=== PATIENT | male | born 1995 | race Caucasian/White ===

== ENCOUNTER 2018-11-11 12:41 | Emergency (ER) | payer BC ==
[~2018-11-11] VITALS: Ht 172.7 cm; Wt 140.6 kg
[2018-11-11 12:49] VITALS: Ht 172.7 cm; Wt 140.6 kg
[2018-11-11 13:43] LABS: BASOPHIL % 0.3 % (0-2); PLATELET COUNT 235 x10^3mcL (130-400); RED CELL DISTRIBUTION WIDTH 13.1 % (11.5-14.5)
[2018-11-11 13:44] LABS: CALCIUM 9.4 mg/dL (8.5-10.1); CARBON DIOXIDE 29.5 mmol/L (21-32); CHLORIDE SERUM 106 mmol/L (98-107); GFR1 > 60 mL/min; GLUCOSE SERUM 155 mg/dL (74-106); SODIUM SERUM 144 mmol/L (136-145)
[2018-11-11 13:49] LABS: ALBUMIN 4.1 g/dL (3.4-5.0); ALKALINE PHOSPHATASE 66 U/L (46-116); ALT/SGPT 216 U/L (16-63); AST/SGOT 69 U/L (15-37); BILIRUBIN TOTAL 0.67 mg/dL (0.20-1.00); TOTAL PROTEIN, SERUM 7.8 g/dL (6.4-8.2)
[2018-11-11 15:34] VITALS: BP 126/70
== END 2018-11-11 15:34 | disposition home or self-care (01) ==
LOC: ED 12:41
PROVIDERS: Emergency Medicine
DX: J32.2 Chronic ethmoidal sinusitis (principal)
CPT/HCPCS: J1885; J2405; J7030

== ENCOUNTER 2019-09-30 09:53 | Emergency (ER) | payer MEDICAID ==
[~2019-09-30] VITALS: Ht 172.7 cm; Wt 140.6 kg
[2019-09-30 10:05] VITALS: Ht 172.7 cm; Wt 140.6 kg
[2019-09-30 10:46] LABS: BASOPHIL % 0.4 % (0-2); PLATELET COUNT 227 x10^3mcL (130-400); RED CELL DISTRIBUTION WIDTH 13.8 % (11.5-14.5)
[2019-09-30 10:58] LABS: UA SPECIFIC GRAVITY 1.015 (1.005-1.035); microscopic required? YES; urine erythrocyte NEGATIVE (NEGATIVE)
[2019-09-30 11:01] LABS: CALCIUM 9.7 mg/dL (8.5-10.1); CARBON DIOXIDE 27.6 mmol/L (21-32); CHLORIDE SERUM 104 mmol/L (98-107); CREATININE SERUM 0.9 mg/dL (0.7-1.3); GFR1 > 60 mL/min; GLUCOSE SERUM 115 mg/dL (74-106); POTASSIUM SERUM 3.6 mmol/L (3.5-5.1); SODIUM SERUM 142 mmol/L (136-145)
[2019-09-30 11:02] LABS: ALBUMIN 4.4 g/dL (3.4-5.0); ALKALINE PHOSPHATASE 50 U/L (46-116); ALT/SGPT 323 U/L (16-63); AST/SGOT 114 U/L (15-37); BILIRUBIN TOTAL 1.3 mg/dL (0.20-1.00); CHOLESTEROL 197 mg/dL (<200); CHOLESTEROL/HDL RATIO 4.2; HDL CHOLESTEROL 47 mg/dL (40-60); LIPASE 66 IU/L (73-393); TOTAL PROTEIN, SERUM 7.9 g/dL (6.4-8.2); TRIGLYCERIDES 101 mg/dL (<150)
[2019-09-30 11:07] LABS: T3 TOTAL 1.57 ng/mL
[2019-09-30 11:16] LABS: FREE T4 0.96 ng/dL (0.76-1.46); FREE THYROXINE INDEX 2.3 ug/dL (1.4-4.5); T4(THYROXINE) 7.7 ug/dL (4.7-13.3)
[2019-09-30 13:52] VITALS: BP 144/91
== END 2019-09-30 13:52 | disposition home or self-care (01) ==
LOC: ED 09:53
PROVIDERS: Specialist
DX: R07.89 Other chest pain (principal); R51 Headache; E66.01 Morbid (severe) obesity due to excess calories; J45.909 Unspecified asthma, uncomplicated
CPT/HCPCS: 83880; 84439; J7030; Q0092

== ENCOUNTER 2019-10-02 15:53 | Inpatient (IN) | payer MEDICAID ==
[~2019-10-02] VITALS: Ht 172.7 cm; Wt 136.5 kg
[2019-10-02 15:57] VITALS: Ht 172.7 cm; Wt 136.5 kg
[2019-10-02 17:19] LABS: BASOPHIL % 0.4 % (0-2); PLATELET COUNT 231 x10^3mcL (130-400); RED CELL DISTRIBUTION WIDTH 13.6 % (11.5-14.5)
[2019-10-02 17:31] LABS: CALCIUM 9.4 mg/dL (8.5-10.1); CARBON DIOXIDE 26.4 mmol/L (21-32); CHLORIDE SERUM 103 mmol/L (98-107); CREATININE SERUM 0.9 mg/dL (0.7-1.3); GFR1 > 60 mL/min; GLUCOSE SERUM 111 mg/dL (74-106); SODIUM SERUM 141 mmol/L (136-145)
[2019-10-02 17:35] LABS: ALBUMIN 4.5 g/dL (3.4-5.0); ALKALINE PHOSPHATASE 49 U/L (46-116); ALT/SGPT 301 U/L (16-63); AST/SGOT 99 U/L (15-37); CHOLESTEROL 200 mg/dL (<200); HDL CHOLESTEROL 41 mg/dL (40-60); LIPASE 76 IU/L (73-393); TOTAL PROTEIN, SERUM 8.1 g/dL (6.4-8.2)
[2019-10-02] MEDS ORDERED: PROAIR HFA8.5 GM INH (20:27)
[2019-10-02 20:51] VITALS: BP 150/88
[2019-10-02 21:52] LABS: UA SPECIFIC GRAVITY >=1.030 (1.005-1.035); microscopic required? YES; urine erythrocyte NEGATIVE (NEGATIVE)
[2019-10-02 22:16] LABS: AMPHETAMINE QUAL UR NONE DETECTED (See below)
[2019-10-03 04:39] VITALS: BP 140/70
[2019-10-03 07:24] LABS: BASOPHIL % 0.4 % (0-2); PLATELET COUNT 220 x10^3mcL (130-400); RED CELL DISTRIBUTION WIDTH 13.6 % (11.5-14.5)
[2019-10-03 08:01] LABS: CALCIUM 8.9 mg/dL (8.5-10.1); CARBON DIOXIDE 24.8 mmol/L (21-32); CHLORIDE SERUM 104 mmol/L (98-107); CREATININE SERUM 0.7 mg/dL (0.7-1.3); GFR1 > 60 mL/min; GLUCOSE SERUM 89 mg/dL (74-106); MAGNESIUM 2.3 mg/dL (1.8-2.4); POTASSIUM SERUM 3.5 mmol/L (3.5-5.1); SODIUM SERUM 139 mmol/L (136-145)
[2019-10-03 12:47] VITALS: BP 147/87
[2019-10-03 20:58] VITALS: BP 138/88
[2019-10-04 05:15] VITALS: BP 140/89
[2019-10-04 06:37] LABS: BASOPHIL % 0.4 % (0-2); PLATELET COUNT 215 x10^3mcL (130-400); RED CELL DISTRIBUTION WIDTH 13.6 % (11.5-14.5)
[2019-10-04 07:22] LABS: ALKALINE PHOSPHATASE 45 U/L (46-116); ALT/SGPT 319 U/L (16-63); AST/SGOT 108 U/L (15-37); CARBON DIOXIDE 27.6 mmol/L (21-32); CHLORIDE SERUM 105 mmol/L (98-107); CREATININE SERUM 0.8 mg/dL (0.7-1.3); GFR1 > 60 mL/min; GLUCOSE SERUM 87 mg/dL (74-106); MAGNESIUM 2.1 mg/dL (1.8-2.4); PHOSPHOROUS 3.5 mg/dL (2.5-4.9); POTASSIUM SERUM 3.4 mmol/L (3.5-5.1); SODIUM SERUM 140 mmol/L (136-145); TOTAL PROTEIN, SERUM 7.2 g/dL (6.4-8.2)
[2019-10-04 07:49] VITALS: BP 136/89
[2019-10-04 10:12] VITALS: BP 137/77
[2019-10-04 12:18] VITALS: BP 149/81
[2019-10-04 16:28] VITALS: BP 144/87
== END 2019-10-04 17:05 | disposition home or self-care (01) | DRG 241 ==
LOC: ED 15:53 → DU 19:56 → MU 10-04 16:24
PROVIDERS: Emergency Medicine; Internal Medicine; ADMIT Internal Medicine
PROC: 0F798ZZ Dilation of Common Bile Duct, Via Natural or Artificial Opening Endoscopic (ICD-10-PCS; principal; 2019-10-04 08:30)
PROC: BF131ZZ Fluoroscopy of Gallbladder and Bile Ducts using Low Osmolar Contrast (ICD-10-PCS; 2019-10-04 08:30)
DX: K29.20 Alcoholic gastritis without bleeding (principal); E66.01 Morbid (severe) obesity due to excess calories; M62.82 Rhabdomyolysis; J45.909 Unspecified asthma, uncomplicated; Z68.42 Body mass index [BMI] 45.0-49.9, adult; Z71.3 Dietary counseling and surveillance; F17.200 Nicotine dependence, unspecified, uncomplicated; F12.10 Cannabis abuse, uncomplicated; E78.5 Hyperlipidemia, unspecified; I10 Essential (primary) hypertension; F10.10 Alcohol abuse, uncomplicated; Y90.9 Presence of alcohol in blood, level not specified
CPT/HCPCS: 43262; 99406; C1769; G0378; J0696; J1610; J2250; J3010; J3490; J7030; J7120; Q0092; Q9967

== ENCOUNTER 2019-10-06 04:11 | Emergency (ER) | payer MEDICAID ==
[~2019-10-06] VITALS: Ht 172.7 cm; Wt 135.2 kg
[~2019-10-06 04:11] MED LIST: PROAIR HFA8.5 GM INH
[2019-10-06 04:21] VITALS: Ht 172.7 cm; Wt 135.2 kg
[2019-10-06 05:02] VITALS: BP 178/100
== END 2019-10-06 05:02 | disposition left against medical advice (07) ==
LOC: ED 04:11
DX: Z53.21 Procedure and treatment not carried out due to patient leaving prior to being seen by health care provider (principal)

== ENCOUNTER → 2019-10-12 | Outpatient (CLI) | payer MEDICAID ==
[2019-10-12 16:37] LABS: BASOPHIL % 0.7 % (0-2); PLATELET COUNT 214 x10^3mcL (130-400); RED CELL DISTRIBUTION WIDTH 13.3 % (11.5-14.5)
[2019-10-12 17:12] LABS: ALBUMIN 4.3 g/dL (3.4-5.0); ALKALINE PHOSPHATASE 46 U/L (46-116); ALT/SGPT 183 U/L (16-63); AST/SGOT 69 U/L (15-37); BILIRUBIN TOTAL 0.6 mg/dL (0.20-1.00); CALCIUM 9.5 mg/dL (8.5-10.1); CARBON DIOXIDE 29.8 mmol/L (21-32); CHLORIDE SERUM 106 mmol/L (98-107); GFR1 > 60 mL/min; GLUCOSE SERUM 100 mg/dL (74-106); POTASSIUM SERUM 4.3 mmol/L (3.5-5.1); SODIUM SERUM 143 mmol/L (136-145); TOTAL PROTEIN, SERUM 7.4 g/dL (6.4-8.2)
== END | disposition home or self-care (01) ==
LOC: LB 15:50
DX: K83.09 Other cholangitis (principal); K83.8 Other specified diseases of biliary tract; K76.0 Fatty (change of) liver, not elsewhere classified

== ENCOUNTER 2019-10-28 11:47 | Emergency (ER) | payer MEDICAID ==
[~2019-10-28] VITALS: Ht 172.7 cm; Wt 98.9 kg
[2019-10-28 12:05] VITALS: Ht 172.7 cm; Wt 98.9 kg
[2019-10-28 13:01] LABS: BASOPHIL % 0.5 % (0-2); PLATELET COUNT 173 x10^3mcL (130-400); RED CELL DISTRIBUTION WIDTH 13.2 % (11.5-14.5)
[2019-10-28 13:15] LABS: CARBON DIOXIDE 29.4 mmol/L (21-32); CHLORIDE SERUM 106 mmol/L (98-107); CREATININE SERUM 0.9 mg/dL (0.7-1.3); GFR1 > 60 mL/min; GLUCOSE SERUM 105 mg/dL (74-106); SODIUM SERUM 141 mmol/L (136-145)
[2019-10-28 13:19] LABS: ALBUMIN 4.4 g/dL (3.4-5.0); ALKALINE PHOSPHATASE 62 U/L (46-116); ALT/SGPT 140 U/L (16-63); AST/SGOT 48 U/L (15-37); BILIRUBIN TOTAL 0.88 mg/dL (0.20-1.00); TOTAL PROTEIN, SERUM 7.5 g/dL (6.4-8.2)
[2019-10-28 13:54] VITALS: BP 136/93
== END 2019-10-28 13:54 | disposition home or self-care (01) ==
LOC: ED 11:47
PROVIDERS: Emergency Medicine
DX: I10 Essential (primary) hypertension (principal); R07.89 Other chest pain; J45.909 Unspecified asthma, uncomplicated; Z90.49 Acquired absence of other specified parts of digestive tract
CPT/HCPCS: 36415; Q0092

== ENCOUNTER 2020-04-10 08:26 | Emergency (ER) | payer OTHER ==
[~2020-04-10] VITALS: Ht 172.7 cm; Wt 139.3 kg
[2020-04-10 08:33] VITALS: Ht 172.7 cm; Wt 139.3 kg
[2020-04-10 09:57] VITALS: BP 146/96
== END 2020-04-10 09:57 | disposition home or self-care (01) ==
LOC: ED 08:26
DX: S93.602A Unspecified sprain of left foot, initial encounter (principal); J45.909 Unspecified asthma, uncomplicated; W19.XXXA Unspecified fall, initial encounter; Y93.67 Activity, basketball; Y92.310 Basketball court as the place of occurrence of the external cause; Y99.8 Other external cause status
CPT/HCPCS: Q0092